=== PATIENT | female | born 1970 | race Caucasian/White ===

== ENCOUNTER 2018-05-21 14:37 | Emergency (ER) | payer OTHER ==
[~2018-05-21] VITALS: Ht 167.6 cm; Wt 81.6 kg
== END 2018-05-21 16:11 | disposition home or self-care (01) ==
LOC: FSED 14:37
DX: J02.9 Acute pharyngitis, unspecified (principal); R05 Cough; E03.9 Hypothyroidism, unspecified
CPT/HCPCS: 83518; 99281